=== PATIENT | female | born 1975 | race African-American/Black ===

== ENCOUNTER 2017-04-18 10:02 | Emergency (ER) | payer MEDICAID ==
[~2017-04-18] VITALS: Ht 162.6 cm; Wt 100.0 kg
[2017-04-18] MEDS ORDERED: ACETAMINOPHEN 325MG TABLET ONE (10:24)
[2017-04-18 16:45] VITALS: BP 134/93
== END 2017-04-18 17:07 | disposition home or self-care (01) ==
LOC: ER 10:37
DX: R05 Cough (principal); M79.1 Myalgia; R50.9 Fever, unspecified; Z88.0 Allergy status to penicillin
CPT/HCPCS: 71045; 81025; 87804; 99285; Z7610